=== PATIENT | female | born 1945 | race Caucasian/White ===

== ENCOUNTER 2020-05-24 15:10 | Outpatient (CLI) | payer MEDICARE, SELFPAY ==
--- NOTE | ~2020-05-24 | MM_ITS ---
EXAMINATION: MM screening [facility] HISTORY: Screening mammogram TECHNIQUE: Craniocaudal and mediolateral oblique 3-D tomosynthesis images were obtained and synthetic 2-D images were generated. CAD analysis was submitted and interpreted. COMPARISON: No prior mammogram is available for comparison at this institution. BREAST PARENCHYMAL COMPOSITION: There are scattered areas of fibroglandular density. FINDINGS: There is no evidence of suspicious mass, calcification, or architectural distortion to sugg est malignancy in either breast. IMPRESSION: 1. No mammographic evidence of malignancy. 2. Recommend routine screening mammography in one year. BI-RADS Category 1: Negative Reviewed, dictated and finalized at location A.
== END 2020-05-24 15:11 | disposition home or self-care (01) ==
PROVIDERS: PCP Family Medicine; Visit Provider Family Medicine
DX: Z12.31 Encounter for screening mammogram for malignant neoplasm of breast (principal)
CPT/HCPCS: 77063; 77067

== ENCOUNTER 2020-07-18 08:28 | Outpatient (CLI) | payer MEDICARE, SELFPAY ==
--- NOTE | ~2020-07-18 | DEXA_ITS ---
BMD(1) Young-Adult(2) Age-Matched(3) Region (g/cm2) T-score Z-score WHO Classification L1 0.969 -1.4 0.2 Osteopenia L2 1.052 -1.3 0.3 Osteopenia L3 1.366 1.2 2.8 Normal L4 1.381 1.3 2.8 Normal L1-L4 1.202 0.1 1.6 Normal Trend: L1-L4 Change vs Change vs Measured Age BMD(1) Baseline Previous Date (years) (g/cm2) (%) (%) 07/18/2020 [age] 1.202 baseline - 1 - Statistically 68% of repeat scans fall within 1SD (+- 0.010 g/cm2 for AP Spine L1-L4) 2 - [place] (Combined [employer]ANES (ages 20-30) / [employer] (ages 20-40)) AP Spine Reference Population (v112) 3 - Matched for Age, Weight (females 25-100 kg), Ethnic 11 - World Health Organization - Definition of Osteoporosis and Osteopenia for Women: Normal = T-score at or above -1.0 SD; Osteopenia = T-score between -1.0 and -2.5 SD; Osteoporosis = T-score at or below -2.5 SD; (WHO definitions only apply when a young healthy Women reference database is used to determine T-scores.) Printed: 07/18/2020 9:08:46 AM (13.60)76:3.00:50.00:12.0 0.00:11.10 0.60x1.05 24.5:%Fat=35.4% 0.00:0.00 0.00:0.00 Filename: [id number] Scan Mode: Standard;OneScan 37.0 Kranem [id number] BMD(1) Young-Adult(2,7) Age-Matched(3) Region (g/cm2) T-score Z-score WHO Classification Neck Left 0.887 -1.1 0.7 Osteopenia Right 0.895 -1.0 0.7 Normal Mean 0.891 -1.1 0.7 Osteopenia Difference 0.009 0.1 0.1 - Total Left 0.953 -0.4 1.1 Normal Right 0.924 -0.7 0.9 Normal Mean 0.939 -0.5 1.0 Normal Difference 0.029 0.2 0.2 - Hip [place] Length Comparison (mm) (Right = 101.6 mm) (Mean = 104.4 mm) (Left = 107.6 mm) Trend: Total Mean Change vs Change vs Measured Age BMD(1) Baseline Previous Date (years) (g/cm2) (%) (%) 07/18/2020 75.4 0.939 baseline - 1 - Statistically 68% of repeat scans fall within 1SD (+- 0.010 g/cm2 for DualFemur Total) 2 - [place] (Combined NHANES (ages 20-30) / [employer] (ages 20-40)) Femur Reference Population (v112) 3 - Matched for Age, Weight (females 25-100 kg), Ethnic 7 - [employer] Total T-score difference is 0.2. Asymmetry is None. 11 - World Health Organization - Definition of Osteoporosis and Osteopenia for Women: Normal = T-score at or above -1.0 SD; Osteopenia = T-score between -1.0 and -2.5 SD; Osteoporosis = T-score at or below -2.5 SD; (WHO definitions only apply when a young healthy Women reference database is used to determine T-scores.) Printed: 07/18/2020 9:08:47 AM (13.60); Filename: [email or web address].dfx; Right Femur; 18.3:%Fat=32.9%; Neck Angle (deg)= 61; Scan Mode: Standard 37.0 uGy; Left Femur; 17.8:%Fat=33.9%; Neck Angle (deg)= 69; Scan Mode: Standard 37.0 uGy [employer] [id number] Dear Stephen Acosta, Your patient Aranza Morrow completed a BMD test on 07/18/2020 using the [employer] DXA System (analysis version: 13.60) manufactured by [employer]. The following summarizes the results of our evaluation. PATIENT BIOGRAPHICAL: Name: Aranza Morrow Date: 1945 Height: 63.0 in. Gender: Female
== END 2020-07-18 08:29 | disposition home or self-care (01) ==
LOC: CHSIMG 08:29
PROVIDERS: PCP Family Medicine; Visit Provider Family Medicine
DX: Z78.0 Asymptomatic menopausal state (principal)
CPT/HCPCS: 77080

== ENCOUNTER 2021-05-25 12:22 | Outpatient (CLI) | payer MEDICARE, SELFPAY ==
--- NOTE | ~2021-05-25 | MM_ITS ---
EXAMINATION: MM screening [facility] HISTORY: Screening mammogram TECHNIQUE: Craniocaudal and mediolateral oblique 3-D tomosynthesis images were obtained and synthetic 2-D images were generated. CAD analysis was submitted and interpreted. COMPARISON: 05/24/2020 BREAST PARENCHYMAL COMPOSITION: There are scattered areas of fibroglandular density. FINDINGS: There is no evidence of suspicious mass, calcification, or architectural distortion to sugg est malignancy in either breast. There has been no suspicious interval change. IMPRESSION: 1. No mammographic evidence of malignancy. 2. Recommend routine screening mammography in one year. BI-RADS Category 1: Negative Reviewed, dictated and finalized at location A.
== END 2021-05-25 12:23 | disposition home or self-care (01) ==
LOC: CHSIMG 12:23
PROVIDERS: PCP Family Medicine; Visit Provider Family Medicine
DX: Z12.31 Encounter for screening mammogram for malignant neoplasm of breast (principal)
CPT/HCPCS: 77063; 77067

== ENCOUNTER 2022-06-05 09:39 | Outpatient (CLI) | payer MEDICARE, SELFPAY ==
--- NOTE | ~2022-06-05 | MM_ITS ---
EXAMINATION: MM screening [facility] BI w [facility] HISTORY: Screening TECHNIQUE: Craniocaudal and mediolateral oblique 3-D tomosynthesis images were obtained and synthetic 2-D images were generated. CAD analysis was submitted and interpreted. COMPARISON: Comparison to multiple prior studies sequentially, with oldest reviewed study dated 06/2020. BREAST PARENCHYMAL COMPOSITION: There are scattered areas of fibroglandular density. FINDINGS: There is no evidence of suspicious mass, calcification, or architectural distortion to sugg est malignancy in either breast. There has been no suspicious interval change. IMPRESSION: 1. No mammographic evidence of malignancy. 2. Recommend routine screening mammography in one year. BI-RADS Category 1: Negative Reviewed, dictated and finalized at location L.
== END 2022-06-05 09:40 | disposition home or self-care (01) ==
LOC: CHSIMG 09:42
PROVIDERS: PCP Family Medicine; Visit Provider Nurse Practitioner
DX: Z12.31 Encounter for screening mammogram for malignant neoplasm of breast (principal)
CPT/HCPCS: 77063; 77067

== ENCOUNTER 2023-06-09 12:50 | Outpatient (CLI) | payer MEDICARE, SELFPAY ==
--- NOTE | ~2023-06-09 | MM_ITS ---
EXAMINATION: MM screening [facility] BI w [facility] HISTORY: Screening mammogram TECHNIQUE: Craniocaudal and mediolateral oblique 3-D tomosynthesis images were obtained and synthetic 2-D images were generated. CAD analysis was submitted and interpreted. COMPARISON: 06/05/2022, 05/25/2021, 05/24/2020 BREAST PARENCHYMAL COMPOSITION: There are scattered areas of fibroglandular density. FINDINGS: No suspicious mass, calcification, or architectural distortion are identified in either alison ast to suggest malignancy. There has been no suspicious interval change. IMPRESSION: 1. No mammographic evidence of malignancy. 2. Recommend routine screening mammography in one year. BI-RADS Category 1: Negative Reviewed, dictated and finalized at location A.
== END 2023-06-09 12:51 | disposition home or self-care (01) ==
LOC: CHSIMG 12:54
PROVIDERS: PCP Family Medicine; Visit Provider Family Medicine
DX: Z12.31 Encounter for screening mammogram for malignant neoplasm of breast (principal)
CPT/HCPCS: 77063; 77067

== ENCOUNTER 2024-06-11 07:33 | Outpatient (CLI) | payer MEDICARE, SELFPAY ==
--- NOTE | ~2024-06-11 | MM_ITS ---
EXAMINATION: MM screening [facility] HISTORY: Screening TECHNIQUE: Craniocaudal and mediolateral oblique 3-D tomosynthesis images were obtained and synthetic 2-D images were generated. CAD analysis was submitted and interpreted. COMPARISON: Comparison to multiple prior studies sequentially, with oldest reviewed study dated 06/2020. BREAST PARENCHYMAL COMPOSITION: Not dense: There are scattered areas of fibroglandular density. FINDINGS: There is no evidence of suspicious mass, calcification, or architectural distortion to sugg est malignancy in either breast. There has been no suspicious interval change. IMPRESSION: 1. No mammographic evidence of malignancy. 2. Recommend routine screening mammography in one year. BI-RADS Category 1: Negative Reviewed, dictated and finalized at location B.
== END 2024-06-11 07:34 | disposition home or self-care (01) ==
LOC: CHSIMG 07:37
DX: Z12.31 Encounter for screening mammogram for malignant neoplasm of breast (principal)
CPT/HCPCS: 77063; 77067

== ENCOUNTER 2025-10-07 13:53 | Outpatient (CLI) | payer MEDICARE, SELFPAY ==
--- NOTE | ~2025-10-07 | MM_ITS ---
EXAMINATION: MM screening [facility] BI w [facility] HISTORY: Screening TECHNIQUE: Craniocaudal and mediolateral oblique 3-D tomosynthesis images were obtained and synthetic 2-D images were generated. CAD analysis was submitted and interpreted. COMPARISON: Comparison to multiple prior studies sequentially, with oldest reviewed study dated 05/24/2020. BREAST PARENCHYMAL COMPOSITION: Not dense: There are scattered areas of fibroglandular density. FINDINGS: There is no evidence of suspicious mass, calcification, or architectural distortion to suggest malignancy in either breast. There has been no suspicious interval change. IMPRESSION: 1. No mammographic evidence of malignancy. 2. Recommend routine screening mammography in one year. BI-RADS Category 1: Negative Reviewed, dictated and finalized at location O. AND SHANK DEPARTMENT SUPERVISOR
--- OUTSIDE RECORDS SUMMARY | 2025-10-07 13:57 | XMS_ITS | Clinical Summary ---
Author Organization [facility] Address [address] [place] [address] Care Team Providers Care Energy Manager Name Role Phone Carol Ann Beltrán [facility] Primary Care Provider [phone]- [phone] Allergies No known active allergies Medications rosuvastatin (CRESTOR) 10 MG tablet Take 1 tablet (10 mg total) by mouth daily. Active hydrOXYzine (ATARAX) 10 MG tablet Take 1 tablet (10 mg total) by mouth 3 (three) times daily. One half 3 times daily as needed for anxiety Active Turmeric 500 MG Cap Take 500 mg by mouth daily. Active vitamin D3, cholecalciferol , 125 mcg capsule Take 1 capsule (125 mcg total) by mouth daily. Active CALCIUM CARBONATE-VITAM IN D OR Take 1 tablet by mouth daily. Calcium carbonate- vot. D3 (9090-282mf-e nit) Active fish oil (OMEGA-3 FATTY ACID) 1000 MG Cap capsule Take 1 capsule (1,000 mg total) by mouth 2 (two) times daily. Active GLUCOSAMINE-CHO NDROITIN OR Take 3 capsules by mouth daily. 500-250mg capsule Active Povidone, PF, (IVIZIA DRY EYES) 0.5 % Solution Apply 1 drop to eye every 12 (twelve) hours. Active alendronate (FOSAMAX) 70 MG tablet Take 1 tablet (70 mg total) by mouth every 7 days. Active Active Problems No known active problems Family History Medical History Relation Comments Diabetes type II Brother passed deom sep sis No Known Problems Daughter Has 2 daughter s in good health Dementia Father AR Father Transient ischemic attack Father Dementia Mother Hypertension Mother Lupus Mother Other cancer Sister Sister 2 d: of Hodgkin at 19 No Known Problems Son Relation Status Comments Brother Daughter Alive Father Mother Sister Alive Son Alive Social History Tobacco Use Types Packs/Day Years Used Date Smoking Tobacco: Every Day Cigarettes 0.3 10 Tobacco Cessation:Ready to Q uit: Not Asked; Counseling Given: Not Answered Alcohol Use Standard Drinks/Week Comments Yes 4 (1 standard drink = 0.6 oz pur e alcohol) moderate alcohol use Comments No Sex and Gender Information Value Date Recorded Sex Assigned at Not on file Legal Sex Female 5:57 PM MANAGER OF SOFTWARE DEVELOPMENT Gender Identity Not on file Sexual Orientation Not on file Last Filed Vital Signs Vital Sign Reading Time Taken Comments Blood Pressure 113/81 02/23/2025 9:51 AM CDT Pulse 63 02/23/2025 9:51 AM CDT Temperature 35.6 C (96.1 F) 02/23/2025 9:51 AM CDT Respiratory Rate 16 02/23/2025 9:51 AM CDT Oxygen Saturation 100% 02/23/2025 9:51 AM CDT Inhaled Oxygen Concentration - - Weight 72.1 kg (159 lb) 02/23/2025 8:04 AM CDT Height 160 cm (5' 3) 02/23/2025 8:04 AM CDT Body Mass Index 28.17 02/23/2025 8:04 AM CDT Plan of Treatment Health Maintenance Due Date Last Done Comments Hepatitis C 01/27/1963 DTaP, Tdap and Td Vaccines ( 1 - Tdap) 1964 Annual Medicare Wellness Visit 2011 Pneumococcal Vaccine: 50+ Years (2 of 2 - PPSV23, PCV20, or PCV21) 08/22/2020 06/27/2020 RSV Immunization or 60+ Years (1 - 1-dose 75+ series) 2021 COVID-19 Vaccine (3 - 2024-2 6 season) 2025 01/10/2021, 12/20/2020 Influenza Adult (#1) 2025 Zoster Vaccines Completed 05/26/2020, 12/02/2019 Colorectal Cancer Screening Colonoscopy (10 Years) Discontinued 10/28/2023, 10/28/2023 Dexa Scan (General) Completed 10/25/2024, 08/22/2022 Hepatitis A Vaccines Aged Out No long er eligible based on patient's age to complete this topic Meningococcal B Vaccine Aged Out No l onger eligible based on patient's age to complete this topic Meningococcal Vaccine Aged Out No adolfo shana eligible based on patient's age to complete this topic RSV Immunizations Under 20 Months Aged Out No longer eligible based on patient's age to complete this topic Medical Devices Implanted Type Area Crib Clerk Device Identifier Shelf Expiration Date Model / Serial / Lot Iol Wilmer [id number] - [id number] Implanted:Qty: 1 on 02/16/2025 by Sophia Sol MD at [facility] Lens Left: Eye [employer] [id number] 02/05/2027 CNA0T0 / [id number] / Iol [employer]mer Cna0t0 - [id number] Implanted:Qty: 1 on 02/23/2025 by Sophia Sol MD at [facility] Lens Right: Eye [employer] [id number] 07/27/2026 CNA0T0 / [id number] / [id number] Procedures Procedure Name Priority Date/Time Associated Diagnosis Comments BONE DENSITY/DEXA Routine 10/25/2024 2:3 1 PM MANAGER OF SOFTWARE DEVELOPMENT Postmenopausal status COLONOSCOPY 10/28/2023 7:07 AM MANAGER OF SOFTWARE DEVELOPMENT from Last 3 Months or Most Recently Relevant to Health Maintenance Results * BONE DENSITY/DEXA (10/25/2024 2:31 PM MANAGER OF SOFTWARE DEVELOPMENT) Anatomical Region Laterality Modality Bone Bone Density 10/25/2024 3:14 PM MANAGER OF SOFTWARE DEVELOPMENT Impressions 10/25/2024 3:18 PM MANAGER OF SOFTWARE DEVELOPMENT Impression: BMD measured at both femoral necks and right total hip at WHO category level of osteopenia. BMD measured at left total hip and AP lumbar spine at level of normal. BMD measured at AP lumbar spine and both total hips decreased since study 08/22/2022. Ordered By: CAROL ANN BELTRÁN Interpreted By: Luis Alberto Dupont MD, 10/25/2024 3:14 PM Narrative 10/25/2024 3:18 PM MANAGER OF SOFTWARE DEVELOPMENT [address] [place] [address] Examination: DEXA Bone densitometry EXAM DATE: 10/25/2024 2:31 PM Clinical history: Postmenopausal. Family history of hip fracture. Smoking history. Calcium supplementation. Vitamin D use. Dairy product consumption. Medication use for treatment of osteoporosis. Technique: DEXA bone minimal density evaluation was performed in the AP projection over the lumbar spine and over both hips in the AP projection utilizing standard imaging techniques. Assessment: The BMD measured at the AP spine L1-L4 is 1.073 g/cm2 with a T-score of 0.2 and a Z-Score of 2.8. Bone density is up to 10% below young normal. This patient is considered normal according to the World Health Organization (WHO) criteria. Fracture risk is low. The BMD measured at the AP lumbar spine has decreased 0.035 g/sq cm since study 08/22/2022. The BMD measured at the femur total left is 0.834 g/cm2 with a T-score of -0.9 and a Z-Score of 1.1. Bone density is up to 10% below young normal. This patient is considered normal according to the World Health Organization (WHO) criteria. Fracture risk is low. The BMD measured at the left total hip has decreased 0.030 g/sq cm since study 08/22/2022. The BMD measured at the left femoral neck is 0.665 g/sq cm resulting in a T score of -1.7 and a Z score of 0.5, findings at the level of osteopenia. The BMD measured at the femur total right is 0.800 g/cm2 with a T-score of -1.2 and aZ-Score of 0.8. The patient is considered osteopenic according to World Health Organization (WHO) criteria. Bone density is between 10 and 25% below young normal. Fracture risk is moderate. Treatment is advised. The BMD measured at the right total hip has decreased 0.080 g/sq cm since study 08/22/2022. The BMD measured at the right femoral neck is 0.688 g/sq cm resulting in a T score of -1.5 and a Z score 0.8, values at the WHO category level of osteopenia. FRAX results: 10 year probability of major osteoporotic fracture 30% and of hip fracture 22%. Recommendations: All patients should ensure an adequate intake of dietary calcium and vitamin D. The NOF recommend adults under the age of 50 need 1000 mg of calcium and 400-800 IU of vitamin D daily. Effective therapy for the prevention and treatment of osteoporosis include biphosphonates. Follow-up: People with diagnosed cases of osteoporosis or at high risk for fracture should have regular bone mineral density test. For patients eligible for Medicare, routine testing is allowed once every 2 years. Testing frequency can be increased to one year for patients who have rapidly progressing disease, those who are receiving or discontinuing medical therapy to restore bone mass, or have additional risk factors. Based on these results, a followup exam is recommended in no earlier than 2 years. Procedure Note Luis Alberto Dupont MD - 10/25/[address] [place] [address] Examination: DEXA Bone densitometry EXAM DATE: 10/25/2024 2:31 PM Clinical history: Postmenopausal. Family history of hip fracture. Smokinghistory. Calcium supplementation. Vitamin D use. Dairy productconsumption. Medication use for treatment of osteoporosis. Technique: DEXA bone minimal density evaluation was performed in the APprojection over the lumbar spine and over both hips in the AP projectionutilizing standard imaging techniques. Assessment: The BMD measured at the AP spine L1-L4 is 1.073 g/cm2 with a T-score of0.2 and a Z-Score of 2.8. Bone density is up to 10% below young normal.This patient is considered normal according to the World HealthOrganization (WHO) criteria. Fracture risk is low. The BMD measured at the AP lumbar spine has decreased 0.035 g/sq cm sincestudy 08/22/2022. The BMD measured at the femur total left is 0.834 g/cm2 with a T-score of-0.9 and a Z-Score of 1.1. Bone density is up to 10% below youngnormal. This patient is considered normal according to the World HealthOrganization (WHO) criteria. Fracture risk is low. The BMD measured at the left total hip has decreased 0.030 g/sq cm sincestudy 08/22/2022. The BMD measured at the left femoral neck is 0.665 g/sq cm resulting in aT score of -1.7 and a Z score of 0.5, findings at the level ofosteopenia. The BMD measured at the femur total right is 0.800 g/cm2 with a T-score of-1.2 and aZ-Score of 0.8. The patient is considered osteopenicaccording to World Health Organization (WHO) criteria. Bone density isbetween 10 and 25% below young normal. Fracture risk is moderate.Treatment is advised. The BMD measured at the right total hip has decreased 0.080 g/sq cm sincestudy 08/22/2022. The BMD measured at the right femoral neck is 0.688 g/sq cm resulting in aT score of -1.5 and a Z score 0.8, values at the WHO category level ofosteopenia. FRAX results: 10 year probability of major osteoporotic fracture 30% andof hip fracture 22%. Recommendations: All patients should ensure an adequate intake of dietary calcium andvitamin D. The NOF recommend adults under the age of 50 need 1000 mg ofcalcium and 400-800 IU of vitamin D daily. Effective therapy for theprevention and treatment of osteoporosis include biphosphonates. Follow-up: People with diagnosed cases of osteoporosis or at high risk for fractureshould have regular bone mineral density test. For patients eligible forMedicare, routine testing is allowed once every 2 years. Testing frequencycan be increased to one year for patients who have rapidly progressingdisease, those who are receiving or discontinuing medical therapy torestore bone mass, or have additional risk factors. Based on these results, a followup exam is recommended in no earlier than2 years. Impression: BMD measured at both femoral necks and right total hip at WHO categorylevel of osteopenia. BMD measured at left total hip and AP lumbar spine at level of normal. BMD measured at AP lumbar spine and both total hips decreased since study08/22/2022. Ordered By: CAROL ANN BELTRÁN Interpreted By: Luis Alberto Dupont MD, 10/25/2024 3:14 PM us Carol Ann Beltrán APNP DEXA Final Resu lt * Colonoscopy (10/28/2023 7:07 AM MANAGER OF SOFTWARE DEVELOPMENT) Clayton Victoria MD GI PROCEDURE ORDERABLES Final Result from Last 3 Months or Most Recently Relevant to Health Maintenance Insurance [employer] MEDICARE Care Teams Energy Manager Relationship Specialty Start Date End Date Carol Ann Beltrán APNP [facility] [place] [address] [place] [address] PCP - General Nurse Practitioner Family 10/13/23
--- OUTSIDE RECORDS SUMMARY | 2025-10-07 13:57 | XMS_ITS | Clinical Summary ---
Author Organization [facility] Address [address] [place] [address] Phone Care Team Providers Care Brownell Operator Name Role Phone Stephen Acosta MD Primary Care Provider [phone] [phone] Social History Tobacco Use Types Packs/Day Years Used Date Smoking Tobacco: Never Assessed Comments Unknown Sex and Gender Information Value Date Recorded Sex Assigned at Not on file Legal Sex Female 3:35 PM CDT Gender Identity Not on file Sexual Orientation Not on file Plan of Treatment Health Maintenance Due Date Last Done Comments Hepatitis C Virus (HCV) Screening 1945 TdaP Immunization 1945 Pneumococcal Immunization (5 0+ years) (1 of 1 - PCV) 01/27/1996 Zoster Immunization (2 of 2) 01/27/2020 12/02/2019 Respiratory Syncytial Virus (RSV) Immunization (Adult) (1 - 1-dose 75+ series) 2021 Influenza Immunization (#1) 2025 08/23/2019 SARS-COV-2 Immunization ( - 2024- season) 2025 Hepatitis B Immunization Aged Out No longer eligible based on patient's age to complete this topic Human Papillomavirus (HPV) Immunization Aged Out No longer eligible b ased on patient's age to complete this topic Meningococcal Immunization (ACWY) Aged Out No longer eligible based on patient's age to complete this topic Rotavirus Immunization Aged Out No lo nger eligible based on patient's age to complete this topic Insurance MEDICARE C [facility] Care Teams Brownell Operator Relationship Specialty Start Date End Date Stephen Acosta MD [address] [place] [address] PCP - General Geriatric Medicine 08/11/20
== END 2025-10-07 13:54 | disposition home or self-care (01) ==
LOC: CHSIMG 13:55
PROVIDERS: PCP Family Medicine
DX: Z12.31 Encounter for screening mammogram for malignant neoplasm of breast (principal)
CPT/HCPCS: 77063; 77067